=== PATIENT | male | born 2000 | race Caucasian/White ===

== ENCOUNTER 2025-09-08 00:11 | Emergency (ER) | payer SELFPAY ==
[2025-09-08] MEDS: Hydrocortisone/Neomycin/Polymyxin B Otic Susp 10 ML Bottle EARRT ONE (00:50)
== END 2025-09-08 00:58 | disposition home or self-care (01) ==
LOC: DL.ED 00:11
DX: H60.91 Unspecified otitis externa, right ear (principal)
CPT/HCPCS: 99282; A9270